=== PATIENT | male | born 1940 | race Caucasian/White ===

== ENCOUNTER 2016-12-29 04:32 | Inpatient (IN) | payer MEDICARE ==
[2016-12-28 14:31] LABS: PATH.CAST-FLAG NOT PRESENT; SPERM-FLAG NOT PRESENT; SRC-FLAG NOT PRESENT; XTAL-FLAG NOT PRESENT; YLC-FLAG NOT PRESENT
[2016-12-28 14:45] LABS: ASPARTATE AMINO TRANSFERASE 10 U/L (15-37); BLOOD UREA NITROGEN 31 mg/dL (7-18)
[~2016-12-29] VITALS: Ht 191.8 cm; Wt 115.7 kg
[~2016-12-29 04:32] MED LIST: AMLO5TAB2 PO; ASPI-496 PO; ATOR10TA PO; CHOL500014 PO; HYDR25TA6 PO; IRBE300T16 PO; OMEP40CA6 PO; POTA20TA89 PO; VALS1TAB26 PO; magnesium PO; potassium PO
[2016-12-29] MEDS ORDERED: CHLORHEXIDINE MOUTHWASH 15 ML UDC MM SCH (05:00)
[2016-12-29] MEDS ORDERED: ALBUMIN HUMAN 5% 500 ML IV ONE (05:00)
[2016-12-29] MEDS ORDERED: DO NOT GIVE MC SCH (05:30)
[2016-12-29 05:55] VITALS: BP_SYST 132; BP_SYST 144; BP_DIAS 81; BP_DIAS 83
[2016-12-29] MEDS ORDERED: INSULIN ASPART 100 UNITS/ML, PEN SQ-INSULIN SCH (06:00)
[2016-12-29] MEDS ORDERED: FENTANYL PF 1000 MCG/20ML ONE (06:38)
[2016-12-29] MEDS ORDERED: MIDAZOLAM 10MG/2 ML ONE (06:38)
[2016-12-29] MEDS ORDERED: EPINEPHRINE 2 MG in SODIUM CHLORIDE 0.9% 248 ML IV SCH (07:30)
[2016-12-29] MEDS ORDERED: MANNITOL PMX 20% 500 ML IVPB PRN (07:30)
[2016-12-29] MEDS ORDERED: POTASSIUM CHLORIDE 80 MEQ, SODIUM BICARBONATE 8.4% 10 MEQ, MAGNESIUM SULFATE 0.5 GM, LI... IV PRN (07:30)
[2016-12-29] MEDS ORDERED: DEXMEDETOMIDINE 200 MCG in SODIUM CHLORIDE 0.9% 48 ML IV SCH (07:30)
[2016-12-29] MEDS ORDERED: REGULAR INSULIN 62.5 UNITS in SODIUM CHLORIDE 0.9% 249.375 ML IV PRN (07:30)
[2016-12-29] MEDS ORDERED: PHENYLEPHRINE 10 MG in SODIUM CHLORIDE 0.9% 249 ML IV PRN ×3 (07:30→17:30)
[2016-12-29] MEDS ORDERED: CEFUROXIME 1.5 GM in SODIUM CHLORIDE 0.9% 50 ML IVPB PRN (07:30)
[2016-12-29] MEDS ORDERED: VANCOMYCIN 1,600 MG in SODIUM CHLORIDE 0.9% 250 ML IV PRN (07:30)
[2016-12-29] MEDS ORDERED: ROCURONIUM 10 MG/ML ONE (07:50)
[2016-12-29] MEDS ORDERED: PROPOFOL 10 MG/ML, 20ML ONE (07:50)
[2016-12-29] MEDS ORDERED: PROTAMINE SULFATE 10 MG/ML, 25ML ONE ×2 (08:43)
[2016-12-29] MEDS ORDERED: CALCIUM CHLORIDE 10%, 10ML SYR ONE (08:44)
[2016-12-29] MEDS ORDERED: AMINOCAPROIC ACID 250 MG/ML, 20ML ONE ×2 (08:44)
[2016-12-29] MEDS ORDERED: SODIUM CHLORIDE FLUSH 10ML SYR IVF SCH (09:00)
[2016-12-29] MEDS ORDERED: MUPIROCIN OINT 2%, 22GM TP SCH (09:00)
[2016-12-29] MEDS ORDERED: DOBUTAMINE 250 MG in SODIUM CHLORIDE 0.9% 230 ML IV PRN (10:10)
[2016-12-29] MEDS ORDERED: SODIUM CHLORIDE 0.9% 1,000 ML IV PRN (10:10)
[2016-12-29] MEDS ORDERED: NITROGLYCERIN/D5W PMX 250 ML IV PRN (10:10)
[2016-12-29] MEDS ORDERED: CLEVIDIPINE 50 ML IV PRN (10:10)
[2016-12-29] MEDS ORDERED: DEXMEDETOMIDINE 200 MCG in SODIUM CHLORIDE 0.9% 48 ML IV PRN (10:10)
[2016-12-29] MEDS ORDERED: methylPREDNISolone SOD SUCC 125 MG/2 ML ONE (10:24)
[2016-12-29] MEDS ORDERED: HEPARIN 1,000 UNITS/ML, 30ML ONE (10:25)
[2016-12-29] MEDS ORDERED: SODIUM BICARB 8.4%, 50ML SYRINGE ONE (10:25)
[2016-12-29] MEDS ORDERED: SODIUM BICARBONATE 1 MEQ/ML, 50ML VIAL ONE (10:26)
[2016-12-29] MEDS ORDERED: LIDOCAINE 2% 100MG/5ML SYRINGE ONE (10:26)
[2016-12-29] MEDS ORDERED: ALBUMIN HUMAN 25% 50 ML ONE (10:27)
[2016-12-29] MEDS ORDERED: MIDAZOLAM 1 MG/ML, 5ML IVPush PRN (10:30)
[2016-12-29] MEDS ORDERED: ACETAMINOPHEN 325 MG TABLET PO PRN (10:30)
[2016-12-29] MEDS ORDERED: LACTATED RINGERS 500 ML IV PRN (10:30)
[2016-12-29] MEDS: KSCALE TO 4.5 IV SCH ×3 (10:30→22:30)
[2016-12-29] MEDS ORDERED: MEPERIDINE/PF 25MG/0.5ML IVPush PRN (10:30)
[2016-12-29] MEDS ORDERED: ACETAMINOPHEN 650 MG SUPP PR PRN (10:30)
[2016-12-29] MEDS ORDERED: GLUCAGON 1 MG IM PRN (10:30)
[2016-12-29] MEDS ORDERED: BISACODYL 10 MG SUPP PR PRN (10:30)
[2016-12-29] MEDS ORDERED: ONDANSETRON 2MG/ML, 2ML IVPush PRN (10:30)
[2016-12-29] MEDS ORDERED: DEXTROSE 50%, 50ML SYRINGE IVPush PRN (10:30)
[2016-12-29] MEDS ORDERED: morphine SULFATE 10 MG/ML, 1ML IVPush PRN (10:30)
[2016-12-29] MEDS ORDERED: PROCHLORPERAZINE 5 MG/ML, 2ML IVPush PRN (10:30)
[2016-12-29] MEDS ORDERED: DEXTROSE 4 GM TAB.CHEW PO PRN (10:30)
[2016-12-29] MEDS ORDERED: EPINEPHRINE 2 MG in SODIUM CHLORIDE 0.9% 248 ML IV PRN (10:30)
[2016-12-29 10:39] LABS: ABG COLLECTION SITE ARTERIAL LINE
[2016-12-29] MEDS: REGULAR INSULIN 62.5 UNITS in SODIUM CHLORIDE 0.9% 249.375 ML IV PRN ×2 (11:00→19:05)
[2016-12-29] MEDS ORDERED: POTASSIUM CHLORIDE 30 MEQ in SODIUM CHLORIDE 0.9% 100 ML IV ONE ×2 (11:30→17:30)
[2016-12-29] MEDS: MAGNESIUM SULFATE 1 GM in SODIUM CHLORIDE 0.9% 50 ML IVPB SCH (11:45)
[2016-12-29] MEDS: CEFUROXIME 1.5 GM in SODIUM CHLORIDE 0.9% 50 ML IVPB SCH ×2 (11:46→22:52)
[2016-12-29] MEDS: SODIUM BICARB 8.4%, 50ML SYRINGE IV PRN ×4 (11:59→14:16)
[2016-12-29] MEDS: HYDROcodone/APAP 10/325 MG TABLET PO PRN ×2 (17:01→22:12)
[2016-12-29 17:26] LABS: ABG COLLECTION SITE RIGHT BRACHIAL
[2016-12-29 17:36] VITALS: BP 112/53
[2016-12-29 17:58] VITALS: BP 114/56
[2016-12-29 18:30] VITALS: BP 121/58
[2016-12-29] MEDS: VANCOMYCIN 1,600 MG in SODIUM CHLORIDE 0.9% 250 ML IVPB SCH (19:02)
[2016-12-29] MEDS: OXYcodone IR 5MG TABLET PO PRN (19:02)
[2016-12-29] MEDS: SODIUM CHLORIDE FLUSH 10ML SYR IVF SCH (22:06)
[2016-12-29] MEDS: MUPIROCIN OINT 2%, 22GM NAS SCH (22:07)
[2016-12-29] MEDS: DOCUSATE 100 MG CAPSULE PO SCH (22:07)
[2016-12-30 04:15] LABS: ABG COLLECTION SITE ARTERIAL LINE
[2016-12-30 04:25] LABS: BLOOD UREA NITROGEN 29 mg/dL (7-18)
[2016-12-30 04:29] LABS: DIFF TOTAL CELLS COUNTED 100 CELL DIFF
[2016-12-30] MEDS: KSCALE TO 4.5 IV SCH (04:30)
[2016-12-30 04:31] LABS: VERIFY COUNTS? YES
[2016-12-30] MEDS: HYDROcodone/APAP 10/325 MG TABLET PO PRN ×3 (04:31→17:41)
[2016-12-30 04:32] LABS: ANISOCYTOSIS 1+
[2016-12-30] MEDS ORDERED: POTASSIUM CHLORIDE PMX 100 ML IV ONE (05:30)
[2016-12-30] MEDS: VANCOMYCIN 1,600 MG in SODIUM CHLORIDE 0.9% 250 ML IVPB SCH (07:33)
[2016-12-30] MEDS: ASPIRIN 81 MG TABLET EC PO SCH (07:34)
[2016-12-30] MEDS: PANTOPRAZOLE 40 MG IV IVPush SCH (07:39)
[2016-12-30] MEDS: SODIUM CHLORIDE FLUSH 10ML SYR IVF SCH ×2 (07:39→20:52)
[2016-12-30] MEDS: DOCUSATE 100 MG CAPSULE PO SCH ×2 (07:40→20:52)
[2016-12-30] MEDS: MUPIROCIN OINT 2%, 22GM NAS SCH ×2 (07:40→20:55)
[2016-12-30] MEDS: INSULIN ASPART 100 UNITS/ML, PEN SQ-INSULIN PRN ×6 (07:48→21:12)
[2016-12-30] MEDS: MAGNESIUM SULFATE 1 GM in SODIUM CHLORIDE 0.9% 50 ML IVPB SCH (09:59)
[2016-12-30] MEDS: CHLORHEXIDINE MOUTHWASH 15 ML UDC MM SCH ×2 (12:25→22:50)
[2016-12-30] MEDS ORDERED: WARFARIN 5 MG TABLET PO-COUM ONE (18:00)
[2016-12-30 20:00] VITALS: BP 131/70
[2016-12-31 01:50] VITALS: BP 113/70
[2016-12-31 05:14] LABS: BLOOD UREA NITROGEN 35 mg/dL (7-18)
[2016-12-31] MEDS ORDERED: FUROSEMIDE 20 MG/2 ML IV ONE (07:00)
[2016-12-31 07:38] VITALS: BP 126/73
[2016-12-31] MEDS: POTASSIUM CHLORIDE 10 MEQ TABLET.ER PO SCH (08:00)
[2016-12-31 08:05] LABS: PH, VENOUS 7.446 pH (7.320-7.420)
[2016-12-31] MEDS: ASPIRIN 81 MG TABLET EC PO SCH (09:00)
[2016-12-31] MEDS: FUROSEMIDE 20 MG/2 ML IV SCH (09:00)
[2016-12-31] MEDS: DOCUSATE 100 MG CAPSULE PO SCH ×2 (09:00→22:03)
[2016-12-31] MEDS: PANTOPRAZOLE 40 MG IV IVPush SCH (09:20)
[2016-12-31] MEDS: SODIUM CHLORIDE FLUSH 10ML SYR IVF SCH ×3 (09:21→22:02)
[2016-12-31] MEDS ORDERED: FENTANYL PF 100 MCG/2ML ONE ×2 (09:28→13:10)
[2016-12-31] MEDS ORDERED: MIDAZOLAM 1 MG/ML, 5ML ONE ×2 (09:28→13:10)
[2016-12-31] MEDS ORDERED: CEFAZOLIN PMX 1GM/50ML 50 ML ONE ×2 (09:29→13:10)
[2016-12-31] MEDS ORDERED: LIDOCAINE 2%, 20ML ONE ×2 (09:29→13:10)
[2016-12-31] MEDS ORDERED: CEFAZOLIN 1,000 MG ONE ×2 (09:29→13:10)
[2016-12-31] MEDS: MUPIROCIN OINT 2%, 22GM NAS SCH ×2 (11:48→22:03)
[2016-12-31] MEDS: MAGNESIUM SULFATE 1 GM in SODIUM CHLORIDE 0.9% 50 ML IVPB SCH (11:48)
[2016-12-31] MEDS: CHLORHEXIDINE MOUTHWASH 15 ML UDC MM SCH ×2 (11:48→22:00)
[2016-12-31] MEDS: INSULIN ASPART 100 UNITS/ML, PEN SQ-INSULIN PRN ×3 (13:10→22:59)
[2016-12-31] MEDS ORDERED: WARFARIN 5 MG TABLET PO-COUM SCH (18:00)
[2016-12-31] MEDS: HYDROcodone/APAP 10/325 MG TABLET PO PRN ×2 (18:11→22:00)
[2016-12-31] MEDS ORDERED: DIGOXIN 0.25 MG/ML, 2ML ONE (18:11)
[2016-12-31] MEDS: METOPROLOL TARTRATE 25 MG TABLET PO SCH (18:11)
[2016-12-31] MEDS ORDERED: DIGOXIN 0.25 MG/ML, 2ML IVPush ONE (18:30)
[2016-12-31] MEDS: CEFAZOLIN 1,000 MG IM SCH (21:00)
[2016-12-31] MEDS: ATORVASTATIN 10 MG TABLET PO SCH (22:00)
[2017-01-01] MEDS: CEFAZOLIN 1,000 MG IM SCH (05:00)
[2017-01-01] MEDS: HYDROcodone/APAP 10/325 MG TABLET PO PRN ×2 (05:44→17:56)
[2017-01-01] MEDS: METOPROLOL TARTRATE 25 MG TABLET PO SCH ×2 (05:46→17:55)
[2017-01-01 06:03] LABS: BLOOD UREA NITROGEN 35 mg/dL (7-18)
[2017-01-01] MEDS: POTASSIUM CHLORIDE 10 MEQ TABLET.ER PO SCH (09:03)
[2017-01-01] MEDS: FUROSEMIDE 20 MG/2 ML IV SCH (09:03)
[2017-01-01] MEDS: ASPIRIN 81 MG TABLET EC PO SCH (09:04)
[2017-01-01] MEDS: DOCUSATE 100 MG CAPSULE PO SCH ×2 (09:04→21:46)
[2017-01-01] MEDS: MUPIROCIN OINT 2%, 22GM NAS SCH ×2 (09:04→21:46)
[2017-01-01] MEDS: PANTOPRAZOLE 40 MG IV IVPush SCH (09:04)
[2017-01-01] MEDS: SODIUM CHLORIDE FLUSH 10ML SYR IVF SCH ×4 (09:06→21:50)
[2017-01-01 09:28] VITALS: BP 126/75
[2017-01-01] MEDS ORDERED: FILTER 0.22 MICRON FOR AMIODARONE IV PRN (11:00)
[2017-01-01] MEDS ORDERED: AMIODARONE 150 MG in DEXTROSE 5% 100 ML IV ONE (11:00)
[2017-01-01] MEDS ORDERED: AMIODARONE 900 MG in DEXTROSE 5% 482 ML IV PRN (11:30)
[2017-01-01] MEDS: OXYcodone IR 5MG TABLET PO PRN (11:45)
[2017-01-01] MEDS: INSULIN ASPART 100 UNITS/ML, PEN SQ-INSULIN PRN ×2 (11:46→21:45)
[2017-01-01 14:00] VITALS: BP 119/63
[2017-01-01] MEDS ORDERED: WARFARIN 5 MG TABLET PO-COUM ONE (18:00)
[2017-01-01 19:50] VITALS: BP 102/65
[2017-01-01] MEDS: ATORVASTATIN 10 MG TABLET PO SCH (21:46)
[2017-01-02] MEDS: HYDROcodone/APAP 10/325 MG TABLET PO PRN ×4 (00:28→20:30)
[2017-01-02 01:27] VITALS: BP 122/70
[2017-01-02 05:39] VITALS: BP 133/76
[2017-01-02] MEDS: METOPROLOL TARTRATE 25 MG TABLET PO SCH ×2 (05:39→17:01)
[2017-01-02 06:02] LABS: BLOOD UREA NITROGEN 40 mg/dL (7-18)
[2017-01-02 07:41] VITALS: BP 112/68
[2017-01-02] MEDS ORDERED: FUROSEMIDE 40 MG/4 ML ONE (08:27)
[2017-01-02] MEDS: FUROSEMIDE 20 MG/2 ML IV SCH (08:32)
[2017-01-02] MEDS: ASPIRIN 81 MG TABLET EC PO SCH (08:33)
[2017-01-02] MEDS: DOCUSATE 100 MG CAPSULE PO SCH ×2 (08:33→20:30)
[2017-01-02] MEDS: MUPIROCIN OINT 2%, 22GM NAS SCH ×2 (08:33→20:30)
[2017-01-02] MEDS: SODIUM CHLORIDE FLUSH 10ML SYR IVF SCH ×4 (08:33→20:31)
[2017-01-02] MEDS: PANTOPRAZOLE 40 MG IV IVPush SCH (08:33)
[2017-01-02] MEDS: POTASSIUM CHLORIDE 10 MEQ TABLET.ER PO SCH (08:33)
[2017-01-02] MEDS ORDERED: AMIODARONE 200 MG TABLET PO SCH (09:00)
[2017-01-02] MEDS ORDERED: FUROSEMIDE 20 MG/2 ML IV SCH (09:00)
[2017-01-02] MEDS: AMIODARONE 200 MG TABLET PO SCH ×3 (10:09→20:29)
[2017-01-02 15:41] VITALS: BP 118/71
[2017-01-02] MEDS ORDERED: WARFARIN 10 MG TABLET PO-COUM SCH (18:00)
[2017-01-02] MEDS: BISACODYL 5 MG EC TABLET PO PRN (20:30)
[2017-01-02] MEDS: ATORVASTATIN 10 MG TABLET PO SCH (20:30)
[2017-01-02 20:45] VITALS: BP 117/70
[2017-01-03 02:54] VITALS: BP 128/76
[2017-01-03 04:33] LABS: BLOOD UREA NITROGEN 35 mg/dL (7-18)
[2017-01-03] MEDS: METOPROLOL TARTRATE 25 MG TABLET PO SCH ×2 (06:17→17:56)
[2017-01-03] MEDS: HYDROcodone/APAP 10/325 MG TABLET PO PRN ×2 (06:20→12:59)
[2017-01-03 09:15] VITALS: BP 160/82
[2017-01-03] MEDS: MUPIROCIN OINT 2%, 22GM NAS SCH (09:17)
[2017-01-03] MEDS: DOCUSATE 100 MG CAPSULE PO SCH ×2 (09:17→19:29)
[2017-01-03] MEDS: ASPIRIN 81 MG TABLET EC PO SCH (09:17)
[2017-01-03] MEDS: POTASSIUM CHLORIDE 10 MEQ TABLET.ER PO SCH (09:17)
[2017-01-03] MEDS: AMIODARONE 200 MG TABLET PO SCH (09:17)
[2017-01-03] MEDS: SODIUM CHLORIDE FLUSH 10ML SYR IVF SCH ×4 (09:18→19:29)
[2017-01-03] MEDS: PANTOPRAZOLE 40 MG IV IVPush SCH (09:18)
[2017-01-03] MEDS: FUROSEMIDE 20 MG/2 ML IV SCH (09:18)
[2017-01-03 15:20] VITALS: BP 137/68
[2017-01-03] MEDS: BISACODYL 5 MG EC TABLET PO PRN (16:43)
[2017-01-03] MEDS ORDERED: WARFARIN 7.5 MG TABLET PO-COUM SCH (18:00)
[2017-01-03 19:26] VITALS: BP 94/59
[2017-01-03] MEDS: ATORVASTATIN 10 MG TABLET PO SCH (19:29)
[2017-01-04 02:12] VITALS: BP 147/76
[2017-01-04] MEDS: HYDROcodone/APAP 10/325 MG TABLET PO PRN (05:09)
[2017-01-04] MEDS: METOPROLOL TARTRATE 25 MG TABLET PO SCH (05:43)
[2017-01-04 06:19] LABS: BLOOD UREA NITROGEN 31 mg/dL (7-18)
[2017-01-04] MEDS: DOCUSATE 100 MG CAPSULE PO SCH (07:24)
[2017-01-04] MEDS: ASPIRIN 81 MG TABLET EC PO SCH (07:24)
[2017-01-04] MEDS: POTASSIUM CHLORIDE 10 MEQ TABLET.ER PO SCH (07:24)
[2017-01-04] MEDS: FUROSEMIDE 20 MG/2 ML IV SCH (07:25)
[2017-01-04] MEDS: PANTOPRAZOLE 40 MG IV IVPush SCH (07:25)
[2017-01-04] MEDS: SODIUM CHLORIDE FLUSH 10ML SYR IVF SCH ×2 (07:25)
[2017-01-04] MEDS ORDERED: POTASSIUM CHLORIDE 20 MEQ TAB.ER.PRT PO ONE (08:30)
[2017-01-04] MEDS ORDERED: AMIO200T42 PO (08:33)
[2017-01-04] MEDS ORDERED: FURO40TA6 PO (08:33)
[2017-01-04] MEDS ORDERED: METO25TA35 PO (08:33)
[2017-01-04] MEDS ORDERED: POTA10TA90 PO (08:33)
[2017-01-04] MEDS ORDERED: WARF5TAB PO (08:34)
[2017-01-04 08:50] VITALS: BP 108/67
[2017-01-04] MEDS ORDERED: AMIODARONE 200 MG TABLET PO SCH (09:00)
[2017-01-04] MEDS ORDERED: HOLD COUMADIN MC PRN (09:00)
[2017-01-04] MEDS ORDERED: HYDR-3307 PO (11:14)
== END 2017-01-04 11:40 | disposition home health service (06) | DRG 219 ==
LOC: 5SO 04:32 → CSU 08:01 → 5SO 12-30 20:08 → CSU 12-31 08:44 → 5SO 01-01 09:21 → DCLOUNGE 01-04 10:55
PROVIDERS: ADMIT Thoracic Surgery (Cardiothoracic Vascular Surgery); ATTEND Thoracic Surgery (Cardiothoracic Vascular Surgery)
PROC: 5A1221Z Performance of Cardiac Output, Continuous (ICD-10-PCS; 2016-12-29)
PROC: B246ZZ4 Ultrasonography of Right and Left Heart, Transesophageal (ICD-10-PCS; 2016-12-29)
PROC: 30233R1 Transfusion of Nonautologous Platelets into Peripheral Vein, Percutaneous Approach (ICD-10-PCS; 2016-12-29)
PROC: B245ZZ4 Ultrasonography of Left Heart, Transesophageal (ICD-10-PCS; 2016-12-29)
PROC: 02RF0JZ Replacement of Aortic Valve with Synthetic Substitute, Open Approach (ICD-10-PCS; principal; 2016-12-29 07:30)
PROC: 0JH606Z Insertion of Pacemaker, Dual Chamber into Chest Subcutaneous Tissue and Fascia, Open Approach (ICD-10-PCS; 2016-12-31)
PROC: 02H63JZ Insertion of Pacemaker Lead into Right Atrium, Percutaneous Approach (ICD-10-PCS; 2016-12-31)
PROC: 02HK3JZ Insertion of Pacemaker Lead into Right Ventricle, Percutaneous Approach (ICD-10-PCS; 2016-12-31)
DX: I35.0 Nonrheumatic aortic (valve) stenosis (principal); I46.9 Cardiac arrest, cause unspecified; I50.32 Chronic diastolic (congestive) heart failure; I44.2 Atrioventricular block, complete; I13.0 Hypertensive heart and chronic kidney disease with heart failure and stage 1 through stage 4 chronic kidney disease, or unspecified chronic kidney disease; E11.22 Type 2 diabetes mellitus with diabetic chronic kidney disease; E78.00 Pure hypercholesterolemia, unspecified; E78.5 Hyperlipidemia, unspecified; I45.10 Unspecified right bundle-branch block; I48.91 Unspecified atrial fibrillation; I70.0 Atherosclerosis of aorta; N18.9 Chronic kidney disease, unspecified; Z85.528 Personal history of other malignant neoplasm of kidney; Z79.01 Long term (current) use of anticoagulants; Z85.820 Personal history of malignant melanoma of skin; Z87.891 Personal history of nicotine dependence; Z90.5 Acquired absence of kidney; Z90.49 Acquired absence of other specified parts of digestive tract; Z90.79 Acquired absence of other genital organ(s); Z79.82 Long term (current) use of aspirin; Z88.5 Allergy status to narcotic agent
CPT/HCPCS: 33208; 36415; 36600; 71010; 71020; 80048; 80053; 81001; 82040; 82330; 82800; 82803; 82810; 82947; 82962; 83036; 83735; 84132; 84295; 85014; 85018; 85025; 85049; 85347; 85610; 85730; 86850; 86900; 86923; 87081; 88305; 93005; 93312; 93321; 93325; 93880; 94002; 94150; C1768; C1779; C1785; C1892; J0690; J0697; J1644; J1815; J2250; J2405; J2704; J2720; J3010; J3370; J3475; J3480; J3490; P9045; P9047; C1751; C1760; C1763; C9113; J0171; J0282; J1160; J1940; J2270; J2370; J2930; J7050; J7060; P9035